=== PATIENT | male | born 1960 | race Caucasian/White ===

== ENCOUNTER 2016-11-28 10:21 | Emergency (ER) | payer OTHER ==
[~2016-11-28] VITALS: Ht 167.6 cm; Wt 95.3 kg
[2016-11-28 11:26] VITALS: BP 131/77
[2016-11-28 11:36] VITALS: BP 138/72
--- NOTE | 2016-11-28 12:47 | NUR ---
PT AMBULATED TO BED 2 AT THIS TIME.
--- NOTE | 2016-11-28 12:49 | NUR ---
56M BIB SELF C/O PUNCTURE WOUND TO LEFT FOOT; PT STATED STEPPED ON NAIL YESTERDAY; STATES NAIL WENT THROUGH SHOE TO LEFT FOOT; NO BLEEDING NOTED TO SITE AT THIS TIME; PT C/O THROBBING PAIN TO LEFT FOOT, NON-RADIATING, 9/10; A&OX4, BL LUNG SOUNDS CLEAR, RR EVEN/UNLABORED, SKIN IS WARM/DRY TO TOUCH AT THIS TIME; PT DENIES N/V/D AT THIS TIME; PT RESTING IN BED W/ HOB ELEVATED AND IN LOWEST POSITION; POSITIONED FOR COMFORT; ER MD MADE AWARE OF STATUS. WILL CONTINUE TO MONITOR.
--- NOTE | 2016-11-28 13:00 | NUR ---
Vane terrazas in EDM - 11/28/16 at 1301 by MEDSS ELLIE MCLAUGHLIN EVALUATING PT AT BEDSIDE.
--- NOTE | 2016-11-28 13:13 | NUR ---
XRAY AT BEDSIDE.
[2016-11-28] MEDS ORDERED: LEVOFLOXACIN 500 MG TAB PO ONE (13:20)
[2016-11-28 13:58] VITALS: BP 134/76
--- NOTE | 2016-11-28 13:58 | NUR ---
Patient discharged with v/s stable. Written and verbal after care instructions given and explained. Patient alert, oriented and verbalized understanding of instructions. Ambulatory with steady gait. All questions addressed prior to discharge. ID band removed. Patient advised to follow up with PMD. Rx of LEVAQUIN 500MG given. Patient educated on indication of medication including possible reaction and side effects. Opportunity to ask questions provided and answered.
== END 2016-11-28 13:58 | disposition home or self-care (01) ==
LOC: MED 10:21
DX: S91.332A Puncture wound without foreign body, left foot, initial encounter (principal); J44.9 Chronic obstructive pulmonary disease, unspecified; E11.9 Type 2 diabetes mellitus without complications; W45.0XXA Nail entering through skin, initial encounter; Y93.89 Activity, other specified; Y92.89 Other specified places as the place of occurrence of the external cause; Y99.8 Other external cause status
CPT/HCPCS: 73630; 82948; 90471; 90715; 99284; Q0092

== ENCOUNTER 2017-05-31 05:50 | Emergency (ER) | payer OTHER ==
[~2017-05-31] VITALS: Ht 167.6 cm; Wt 95.3 kg
[2017-05-31 06:02] VITALS: BP 142/94
--- NOTE | 2017-05-31 06:08 | NUR ---
PT TAKEN TO BED 7
--- NOTE | 2017-05-31 06:10 | NUR ---
56/M right leg pain x2 days. Pt denies trauma or injury. Pt c/o "dry" pain inside her leg, from the groin to the buttock, down to right ko, 07/24. Denies N/V/D. Denies fever or chills. AOX4, ambulatory with steady gait. VSS.
--- NOTE | 2017-05-31 06:11 | NUR ---
Patient being evaluated by Dr. Gautam at bedside.
--- NOTE | 2017-05-31 06:38 | NUR ---
Ultrasound at bedside.
--- NOTE | 2017-05-31 07:05 | NUR ---
Pt report given to Savana GUEVARA. Transfer of care at this time.
--- NOTE | 2017-05-31 07:20 | NUR ---
LATE ASSESSMENT DONE AFTER I GET REPORT.
--- NOTE | 2017-05-31 07:20 | NUR ---
PT AWAKE, ALERT, AND ORIENTED. NO SOB. PT STATED PAIN RELIVED. PT'S AT BEDSIDE.
[2017-05-31] MEDS ORDERED: KETOROLAC 60 MG/2 ML VIAL IM ONE (07:45)
[2017-05-31] MEDS ORDERED: oxyCODONE/APAP 5/325 MG 1 TAB TAB PO ONE (07:45)
--- NOTE | 2017-05-31 08:25 | NUR ---
Patient discharged with v/s stable. Written and verbal after care instructions given and explained. Patient alert, oriented and verbalized understanding of instructions. Ambulatory with steady gait. All questions addressed prior to discharge. ID band removed. Patient advised to follow up with PMD. Rx of NORCO AND IBUPROFEN given. Patient educated on indication of medication including possible reaction and side effects. Opportunity to ask questions provided and answered. PT'S AT BEDSIDE.
[2017-05-31 08:26] VITALS: BP 141/81
== END 2017-05-31 08:25 | disposition home or self-care (01) ==
LOC: MED 05:50
DX: M54.32 Sciatica, left side (principal); E11.65 Type 2 diabetes mellitus with hyperglycemia; J44.9 Chronic obstructive pulmonary disease, unspecified; F17.210 Nicotine dependence, cigarettes, uncomplicated
CPT/HCPCS: 93971; 96372; 99284; J1885; Q0092